=== PATIENT | female | born 1950 | race Caucasian/White ===

== ENCOUNTER 2016-12-13 06:51 | Emergency (ER) | payer OTHER ==
[~2016-12-13] VITALS: Ht 154.9 cm; Wt 92.6 kg
[~2016-12-13 06:51] MED LIST: ATORVASTATIN CA10 MG PO; BIOTIN; CALCIUM PO; CARISOPRODOL350 MG PO; FIORINAL 50-321 EACH PO; FLUOXETINE HCL20 MG PO; HYDROCHLOROTHIA25 MG PO; METFORMIN HCL500 M4 PO; METFORMIN HCL500 MG PO; MULTIVITAMIN1 EAC2 PO; PROAIR HFA8.5 GM IH; PROTONIX40 MG PO; REGLAN10 MG PO; TESSALON200 MG PO; ULTRAM50 MG PO; ZITHROMAX Z-PA250 MG PO; ZOFRAN ODT4 MG PO; ZOLPIDEM TARTRA10 MG PO
[2016-12-13] MEDS ORDERED: SUMATRIPTAN SU100 MG PO (07:09)
[2016-12-13] MEDS ORDERED: RANITIDINE HCL300 MG PO (07:09)
[2016-12-13 07:56] LABS: HEMATOCRIT 39.4 % (36.0-46.0); MCH 30.7 PG (29.0-34.0); MCV 93.1 FL (83-99); MEAN PLAT.VOLUME 10.9 uM^3 (9.5-12.4); PLATELET COUNT 229 K/uL (156-360); RBC DIS.WIDTH-CV 13.6 % (11.8-14.6); RBC DIS.WIDTH-SD 46.3 % (39-53); RED BLOOD COUNT 4.23 M/uL (3.80-5.20); WHITE BLOOD COUNT 7.3 K/uL (4.1-10.2)
[2016-12-13 08:05] LABS: CHLORIDE 104 mEq/L (99-109); POTASSIUM 3.5 mEq/L (3.7-5.4); SODIUM 142 mEq/L (136-147)
[2016-12-13 08:07] LABS: GLUCOSE 230 mg/dL (70-99)
[2016-12-13 08:09] LABS: ANION GAP 9 MEQ/L (2-14); TOTAL BILIRUBIN 0.2 mg/dL (0.0-1.0)
[2016-12-13 08:11] LABS: ALKALINE PHOSPHATASE 102 IU/L (3-129); GFR ESTIMATE (CALCULATED) > 59 mL/min/
[2016-12-13 08:12] LABS: UREA NITROGEN (BUN) 19 mg/dL (9-23)
[2016-12-13 08:20] LABS: TROP-I INTERPRETATION NEGATIVE; TROPONIN-I < 0.01 ng/mL (0.0-0.30)
[2016-12-13] MEDS ORDERED: PROAIR HFA8.5 GM IH (10:35)
[2016-12-13] MEDS ORDERED: OMEPRAZOLE20 MG PO (10:35)
[2016-12-13] MEDS ORDERED: RANITIDINE HCL150 MG PO (10:35)
[2016-12-13] MEDS ORDERED: ZOFRAN ODT4 MG PO (10:35)
[2016-12-13 10:42] VITALS: BP 167/85
== END 2016-12-13 10:49 | disposition home or self-care (01) ==
LOC: EME 06:51
PROVIDERS: Nurse Practitioner Family
DX: J06.9 Acute upper respiratory infection, unspecified (principal); J98.01 Acute bronchospasm; E11.65 Type 2 diabetes mellitus with hyperglycemia; K21.9 Gastro-esophageal reflux disease without esophagitis; R11.2 Nausea with vomiting, unspecified; E78.5 Hyperlipidemia, unspecified; I10 Essential (primary) hypertension; Z79.84 Long term (current) use of oral hypoglycemic drugs; Z87.891 Personal history of nicotine dependence
CPT/HCPCS: 71020; 80053; 84484; 85027; 93005; 94640; 99281; 99283

== ENCOUNTER 2017-02-17 11:03 | Inpatient (IN) | payer OTHER ==
[~2017-02-17] VITALS: Ht 157.5 cm; Wt 88.1 kg
[~2017-02-17 11:03] MED LIST changes: +OMEPRAZOLE20 MG PO; +RANITIDINE HCL150 MG PO; +RANITIDINE HCL300 MG PO; +SUMATRIPTAN SU100 MG PO
[2017-02-17] MEDS ORDERED: CLEOCIN300 MG PO (13:20)
[2017-02-17 14:05] LABS: HEMATOCRIT 38.6 % (36.0-46.0); MCH 30.8 PG (29.0-34.0); MCHC 34.5 G/DL (30.0-36.0); MCV 89.4 FL (83-99); MEAN PLAT.VOLUME 11.1 uM^3 (9.5-12.4); PLATELET COUNT 189 K/uL (156-360); RBC DIS.WIDTH-CV 12.7 % (11.8-14.6); RBC DIS.WIDTH-SD 41.6 % (39-53); RED BLOOD COUNT 4.32 M/uL (3.80-5.20); WHITE BLOOD COUNT 7.5 K/uL (4.1-10.2)
[2017-02-17 14:19] LABS: CHLORIDE 100 mEq/L (99-109); SODIUM 137 mEq/L (136-147)
[2017-02-17 14:21] LABS: GLUCOSE 138 mg/dL (70-99)
[2017-02-17 14:23] LABS: ANION GAP 9 MEQ/L (2-14); TOTAL BILIRUBIN 0.4 mg/dL (0.0-1.0)
[2017-02-17 14:25] LABS: ALKALINE PHOSPHATASE 81 IU/L (3-129); GFR ESTIMATE (CALCULATED) > 59 mL/min/
[2017-02-17 14:26] LABS: UREA NITROGEN (BUN) 12 mg/dL (9-23)
[2017-02-17 14:39] LABS: POTASSIUM 2.4 mEq/L (3.7-5.4)
[2017-02-17] MEDS ORDERED: TOPAMAX25 MG PO (19:17)
[2017-02-17 21:23] VITALS: BP 127/77
[2017-02-17 22:51] LABS: POINT-OF-CARE METER ID UU14162513
[2017-02-18] VITALS: BP 118/58
[2017-02-18 01:22] LABS: CHLORIDE 106 mEq/L (99-109); POTASSIUM 2.8 mEq/L (3.7-5.4); SODIUM 139 mEq/L (136-147)
[2017-02-18 01:23] LABS: GLUCOSE 149 mg/dL (70-99)
[2017-02-18 01:25] LABS: ANION GAP 8 MEQ/L (2-14)
[2017-02-18 01:27] LABS: GFR ESTIMATE (CALCULATED) > 59 mL/min/
[2017-02-18 01:28] LABS: UREA NITROGEN (BUN) 13 mg/dL (9-23)
[2017-02-18 03:01] LABS: MAGNESIUM 1.8 mg/dL (1.3-2.7)
[2017-02-18 04:52] VITALS: BP 104/54
[2017-02-18 06:33] LABS: POINT-OF-CARE METER ID UU13113700
[2017-02-18 06:51] LABS: EOSINOPHIL (%) 2.8 % (0-5); EOSINOPHIL COUNT 0.2 K/uL (0-0.3); HEMATOCRIT 35.8 % (36.0-46.0); IMMATURE GRANULOCYTE (%) 0.3 % (0.0-0.7); INSTRUMENT ABS NEUTROPHIL CT 2.2 K/uL; LYMPHOCYTE COUNT 2.7 K/uL (1.0-2.8); MCH 31.2 PG (29.0-34.0); MCHC 33.8 G/DL (30.0-36.0); MCV 92.3 FL (83-99); MEAN PLAT.VOLUME 11.3 uM^3 (9.5-12.4); MONOCYTE (%) 15.1 % (3-12); MONOCYTE COUNT 0.9 K/uL (0-0.8); NEUTROPHIL (%) 37.1 % (45-76); NEUTROPHIL COUNT 2.2 K/uL (1.8-6.4); PLATELET COUNT 175 K/uL (156-360); RBC DIS.WIDTH-CV 13.1 % (11.8-14.6); RED BLOOD COUNT 3.88 M/uL (3.80-5.20)
[2017-02-18 07:18] LABS: ANION GAP 11 MEQ/L (2-14); CHLORIDE 106 MEQ/L (99-109); GFR ESTIMATE (CALCULATED) > 59 mL/min/; GLUCOSE 122 mg/dL (70-99); POTASSIUM 2.6 MEQ/L (3.7-5.4); SAMPLE HEMOLYSIS CHECK 0; SAMPLE ICTERIC CHECK 0; SAMPLE LIPEMIA CHECK 0; SODIUM 142 MEQ/L (136-147); UREA NITROGEN (BUN) 12 mg/dL (9-23)
[2017-02-18 08:46] VITALS: BP 133/91
[2017-02-18 11:51] VITALS: BP 145/79
[2017-02-18 12:10] LABS: POINT-OF-CARE METER ID UU13113831
[2017-02-18 13:13] LABS: C DIFF TOXIN NEGATIVE (NEGATIVE)
[2017-02-18 13:14] LABS: PROBE CHECK PASS; SPECIMEN PROCESSING CONTROL PASS
[2017-02-18 14:24] LABS: CHLORIDE 107 mEq/L (99-109); SODIUM 139 mEq/L (136-147)
[2017-02-18 14:25] LABS: GLUCOSE 171 mg/dL (70-99)
[2017-02-18 14:27] LABS: ANION GAP 8 MEQ/L (2-14)
[2017-02-18 14:29] LABS: GFR ESTIMATE (CALCULATED) > 59 mL/min/
[2017-02-18 14:30] LABS: UREA NITROGEN (BUN) 12 mg/dL (9-23)
[2017-02-18 14:50] LABS: Estimated Average Glucose 194 mg/dL (70-123); HEMOGLOBIN A1c (GLYCOHEMOGLOB) 8.4 % HGB (Below 5.7)
[2017-02-18 15:43] VITALS: BP 131/59
[2017-02-18 17:24] LABS: POINT-OF-CARE METER ID UU13113700
[2017-02-18 20:27] LABS: POINT-OF-CARE METER ID UU13113700
[2017-02-19 00:19] VITALS: BP 110/54
[2017-02-19 04:45] VITALS: BP 126/58
[2017-02-19 08:06] LABS: ANION GAP 8 MEQ/L (2-14); CHLORIDE 110 MEQ/L (99-109); GFR ESTIMATE (CALCULATED) > 59 mL/min/; GLUCOSE 157 mg/dL (70-99); POTASSIUM 3.4 MEQ/L (3.7-5.4); SAMPLE HEMOLYSIS CHECK 0; SAMPLE ICTERIC CHECK 0; SAMPLE LIPEMIA CHECK 0; SODIUM 142 MEQ/L (136-147); UREA NITROGEN (BUN) 14 mg/dL (9-23)
[2017-02-19 08:32] VITALS: BP 111/55
[2017-02-19] MEDS ORDERED: K-DUR10 MEQ PO (09:38)
[2017-02-19] MEDS ORDERED: FLORASTOR250 MG PO (09:38)
[2017-02-19] MEDS ORDERED: CEPHALEXIN500 MG PO (09:38)
== END 2017-02-19 14:21 | disposition home or self-care (01) | DRG 603 ==
LOC: EME 11:03 → EDOF 20:20 → 5WEST 20:20 → EDOF 20:20 → 5WEST 21:08
PROVIDERS: Hospitalist; Internal Medicine; Nurse Practitioner Adult Health; Nurse Practitioner Family
DX: L03.114 Cellulitis of left upper limb (principal); S61.452D Open bite of left hand, subsequent encounter; W54.0XXD Bitten by dog, subsequent encounter; E87.6 Hypokalemia; I10 Essential (primary) hypertension; E11.9 Type 2 diabetes mellitus without complications; E78.00 Pure hypercholesterolemia, unspecified; E78.5 Hyperlipidemia, unspecified; K21.9 Gastro-esophageal reflux disease without esophagitis; E66.01 Morbid (severe) obesity due to excess calories; Z68.35 Body mass index [BMI] 35.0-35.9, adult; F41.9 Anxiety disorder, unspecified; K52.1 Toxic gastroenteritis and colitis; T36.95XA Adverse effect of unspecified systemic antibiotic, initial encounter; F32.9 Major depressive disorder, single episode, unspecified; G43.909 Migraine, unspecified, not intractable, without status migrainosus; Z87.891 Personal history of nicotine dependence; Z79.84 Long term (current) use of oral hypoglycemic drugs
CPT/HCPCS: 73130; 80048; 80048 91; 80053; 82948; 83036; 83605; 83735; 85025; 85027; 87040; 87493; 93005; 99281; 99285; G0378; J0696; J1200; J1650; J1815; J3480; J7030; J7050; S0030